=== PATIENT | male | born 1970 | race African-American/Black ===

== ENCOUNTER 2017-07-09 11:10 | Emergency (ER) | payer SELFPAY ==
--- NOTE | 2017-07-09 12:36 | ED Physician Documentation ---
Abscess - HISTORIAN Historian: patient, spouse - HPI Stated Complaint: Fect facial swelling Chief Complaint: Abscess Additional Information: acute maxillary pain swelling onset 2 days ago prog worse. took three sporatic 250mg amox. no help Onset: days ago (2) Timing: worse Location: facial Quality: painful Identified Cause?: No - ROS CONST: none CVS/RESP: none. denies: chest pain, shortness of breath, cough EYES/ENT: none GI/: none MS/SKIN/LYMPH: none NEURO/PSYCH: none - PAST HX Past History: none Other History: none Surgeries/Procedures: No Allergies/Adverse Reactions: Allergies Allergy/AdvReac Type Severity Reaction Status Date / Time No Known Allergies Allergy Verified 07/09/17 11:36 Home Medications: Ambulatory Orders Medication Instructions Recorded Amoxicillin [Trimox] 500 mg PO QID #40 capsule 07/09/17 - SOCIAL HX Smoking History: non-smoker Alcohol Use: rarely Drug Use: none - FAMILY HX Family History: none - VITAL SIGNS Vital Signs: Vital Signs Temp Pulse Resp BP Pulse Ox 98.1 F 95 H 18 139/96 96 07/09/17 11:32 07/09/17 11:32 07/09/17 11:32 07/09/17 11:32 07/09/17 11:32 - REVIEWED ASSESSMENTS Nursing Assessment Reviewed: Yes Vitals Reviewed: Yes Abscess Physical Exam - EXAM General Appearance: mild distress Skin: warm,dry. No: cyanotic, diaphoretic, pallid, jaundiced, pointing fluctuant with lymphangitis, skin rash Location: face (rt side maxillary only) Symptoms: warmth, swelling Extremities: non-tender, nml ROM, no edema EENT: eyes nml inspection, other (marked rt maxillary percussion pain-minimal of percussion assoc maxillary dentention) Neck: trachea midline Respiratory: no resp distress, chest non-tender, breath sounds normal CVS: reg. rate & rhythm, heart sounds nml Abdomen: non-tender Neuro/Psych: oriented x3, motor nml, sensation nml, mood/affect nml Discharge Clincal Impression: acute maxillary lt sinusitis Prescriptions: Amoxicillin [Trimox] 500 mg PO QID #40 capsule Referrals: Primary Doctor,No [Primary Care Provider] - 2 Days Condition: Good Disposition: 01 HOME, SELF-CARE Decision to Admit: NO Decision Time: 12:40
[2017-07-09 13:01] VITALS: BP 132/87
== END 2017-07-09 12:36 | disposition home or self-care (01) ==
LOC: ED 11:10
DX: J01.00 Acute maxillary sinusitis, unspecified (principal)
CPT/HCPCS: 99282

== ENCOUNTER 2018-03-23 19:38 | Emergency (ER) | payer SELFPAY ==
--- NOTE | 2018-03-23 21:07 | ED Physician Documentation ---
Sore Throat/Dental Pain - HISTORIAN Historian: patient - HPI Stated Complaint: Dental pain Chief Complaint: Dental Pain Onset: days ago Context: Dental Caries Further Comments: yes (47 year old male patient present with left upper front tooth ache; Patient reports previous abscess a few months ago; was treated with antibiotics. Has not see the dentist. Patient requesting medication from $4 list, does not have prescription insurance.) - ROS CONST: no problems CVS/RESP: none GI/: denies: nausea, vomiting MS/SKIN/LYMPH: denies: muscle aches, rash, leg swelling, ankle swelling, other NEURO/PSYCH: none - PAST HX Past History: none Other History: none Allergies/Adverse Reactions: Allergies Allergy/AdvReac Type Severity Reaction Status Date / Time No Known Allergies Allergy Verified 03/23/18 19:56 Home Medications: Ambulatory Orders Medication Instructions Recorded Sulfamethoxazole/Trimethoprim 1 each PO BID #14 tab 03/23/18 [Bactrim Ds] - SOCIAL HX Smoking History: cigarettes - FAMILY HX Family History: No - VITAL SIGNS Vital Signs: Vital Signs Temp Pulse Resp BP Pulse Ox 98.6 F 80 18 132/87 99 03/23/18 19:40 03/23/18 19:40 03/23/18 19:40 07/09/17 12:36 03/23/18 19:40 - REVIEWED ASSESSMENTS Nursing Assessment Reviewed: Yes Vitals Reviewed: Yes ED Results Lab/Radiology - Orders Orders: ED Orders Category Date Time Status Ketorolac Tromethamine [Toradol] Med 03/23/18 20:45 Discontinued 60 mg IM NOW ONE Sulfamethoxazole/Trimethoprim [Bactrim Ds] Med 03/23/18 20:45 Discontinued 1 each PO NOW ONE Dental Pain Physical Exam - EXAM General Appearance: mild distress Mouth/Throat: dental tenderness (around #11 and #12; left facial edema and pain), gum swelling around teeth Ear/Nose: other (turbinate with edema and erythema) Respiratory: no resp. distress, breath sounds nml CVS: reg. rate & rhythm, heart sounds nml Abdomen: soft, no organomegaly, normal bowel sounds, no abdominal bruit, no distension Skin: normal color, warm/dry, NR, INT, PAL, DR Neuro/Psych: No: none Discharge Clincal Impression: Pain, dental, Dental abscess Prescriptions: Sulfamethoxazole/Trimethoprim [Bactrim Ds] 1 each PO BID #14 tab Referrals: Primary Doctor,No [Primary Care Provider] - 2 Days Additional Instructions: Ibuprofen 800mg every 8 hours x 3 days Tylenol 650-1000mg every 4 hours as needed for pain, limit your dose to 4G in 24 hours. Over the counter [employer] - follow package directions. Over the counter Orajel as needed for pain See your dentist as soon as possible Condition: Stable Disposition: 01 HOME, SELF-CARE Decision to Admit: NO Decision Time: 21:06
[2018-03-23] MEDS: SULFAMETHOXAZOLE/TRIMETHOPRIM 1 EACH TABLET PO ONE (21:15)
[2018-03-23] MEDS: KETOROLAC TROMETHAMINE 60 MG/2 ML VIAL IM ONE (21:15)
== END 2018-03-23 21:30 | disposition home or self-care (01) ==
LOC: ED 19:38
DX: K04.7 Periapical abscess without sinus (principal); K08.89 Other specified disorders of teeth and supporting structures
CPT/HCPCS: A9270; J1885; 96372; 99283

== ENCOUNTER 2019-04-11 02:16 | Emergency (ER) | payer OTHER ==
--- NOTE | 2019-04-11 02:26 | ED Physician Documentation ---
Sore Throat/Dental Pain - HISTORIAN Historian: patient - HPI Stated Complaint: dental pain Chief Complaint: Dental Pain Additional Information: Patient present to ED with left upper toothache starting today. Onset: hours (12) Context: Dental Caries Associated Symptoms: denies: fever, chills Worsened By: heat, cold - ROS CONST: no problems CVS/RESP: none GI/: denies: nausea, vomiting MS/SKIN/LYMPH: denies: muscle aches NEURO/PSYCH: denies: headache - PAST HX Past History: gum disease Other History: none Allergies/Adverse Reactions: Allergies Allergy/AdvReac Type Severity Reaction Status Date / Time No Known Allergies Allergy Verified 04/11/19 02:29 Home Medications: Ambulatory Orders Medication Instructions Recorded Sulfamethoxazole/Trimethoprim 1 each PO BID #14 tab 03/23/18 [Bactrim Ds] Penicillin V Potassium [Pen V K] 500 mg PO Q8 #30 tablet 04/11/19 Tramadol HCl [Ultram] 50 mg PO Q8 PRN #10 tablet 04/11/19 - SOCIAL HX Smoking History: non-smoker Alcohol Use: occasionally Drug Use: none - FAMILY HX Family History: No - VITAL SIGNS Vital Signs: Vital Signs Temp Pulse Resp BP Pulse Ox 132/87 07/09/17 12:36 - REVIEWED ASSESSMENTS Nursing Assessment Reviewed: Yes Vitals Reviewed: Yes Dental Pain Physical Exam - EXAM General Appearance: no acute distress, alert Head/Neck: head nml inspection Eyes: PERRL Mouth/Throat: lips nml, gums nml, no air way problems Ear/Nose: nml inspection Respiratory: no resp. distress, breath sounds nml, respiratory distress CVS: reg. rate & rhythm, heart sounds nml Abdomen: soft, normal bowel sounds Extremities: non-tender Skin: warm/dry, normal color Neuro/Psych: none Discharge Clincal Impression: Pain, dental Prescriptions: Penicillin V Potassium [Pen V K] 500 mg PO Q8 #30 tablet Tramadol HCl [Ultram] 50 mg PO Q8 PRN #10 tablet PRN Reason: dental pain Referrals: Primary Doctor,No [Primary Care Provider] - 2 Days Additional Instructions: 1. Take antibiotic until gone 2. Follow up with Dentist as soon as possible 3. Tylenol 650mg every 4 hours and/or Ibuprofen 600mg every 6 hours as needed for pain 4. Tramadol as needed for break through pain 5. Return to ER with new or worsening symptoms Condition: Stable Disposition: 01 HOME, SELF-CARE Decision to Admit: NO Date of Decison to Admit: 04/11/19 Decision Time: 02:27
[2019-04-11] MEDS ORDERED: traMADol HCL 50 MG TABLET PO ONE (02:28)
[2019-04-11] MEDS ORDERED: AMOXICILLIN/POT 875/125 1 EACH PO ONE (02:28)
[2019-04-11 02:29] VITALS: BP 131/62
== END 2019-04-11 02:37 | disposition home or self-care (01) ==
LOC: ED 02:16
DX: K02.9 Dental caries, unspecified (principal)
CPT/HCPCS: 99283; 99284